=== PATIENT | female | born 1955 | race Caucasian/White ===

== ENCOUNTER → 2024-04-30 11:18 | Outpatient (REF) | payer MEDICARE, OTHER, SELFPAY | LOC: RAD 11:18 | PROVIDERS: ATTENDING PHYSICIAN Family Medicine | DX: M54.2 Cervicalgia (principal) | CPT/HCPCS: 72050 ==

== ENCOUNTER → 2024-05-01 13:00 | Outpatient (REF) | payer MEDICARE, OTHER, SELFPAY | LOC: HWWDC 13:00 | PROVIDERS: ATTENDING PHYSICIAN Family Medicine; REFERRING PHYSICIAN Obstetrics & Gynecology | DX: Z12.31 Encounter for screening mammogram for malignant neoplasm of breast (principal) | CPT/HCPCS: 77063; 77067 ==

== ENCOUNTER → 2024-09-13 09:54 | Outpatient (REF) | payer MEDICARE, OTHER, SELFPAY | LOC: MRI 3T 09:54 | PROVIDERS: ATTENDING PHYSICIAN Family Medicine | DX: M54.2 Cervicalgia (principal) | CPT/HCPCS: 72141 ==

== ENCOUNTER → 2025-08-08 13:29 | Outpatient (REF) | payer MEDICARE, OTHER, SELFPAY | LOC: HWWDC 13:29 | PROVIDERS: ATTENDING PHYSICIAN Family Medicine; REFERRING PHYSICIAN Obstetrics & Gynecology | DX: Z12.31 Encounter for screening mammogram for malignant neoplasm of breast (principal) | CPT/HCPCS: 77063; 77067 ==